=== PATIENT | male | born 1980 | race African-American/Black ===

== ENCOUNTER 2019-12-27 02:33 | Observation (INO) ==
[2019-12-27] MEDS ORDERED: LIDOCAINE 1%/EPI INJ 20 ML VIAL ONE (02:43)
[2019-12-27] MEDS ORDERED: DIPH/TET/ACEL PERT BOOSTER VACCINE 0.5 ML VIAL IM ONE (02:57)
[2019-12-27] MEDS ORDERED: HYDROmorphone 2 MG/1 ML VIAL IV STA (02:57)
[2019-12-27] MEDS ORDERED: ONDANSETRON 4 MG/2 ML VIAL IV STA (02:57)
[2019-12-27 03:04] LABS: Basophils % 0.4 % (0.0-0.8); Eosinophils # 0.2 10*3/uL (0.0-0.87); Eosinophils % 1.7 % (0.00-10.9); Hematocrit 43.9 VOL% (42.0-52.0); Hemoglobin 13.6 GM/DL (14.0-18.0); Immature Granulocytes % 0.4 %; Immature Granulocytes Absolute 0.04 #; Lymphocytes # 3.1 10*3/uL (1.4-4.0); Lymphocytes % 32.4 % (21.2-54.2); Mean Corpuscular Volume 79.5 FL (87-102); Mean Platelet Volume 11.7 FL (9.6-12.0); Monocytes % 8.1 % (1.7-12.7); Platelet Count 230 T/CUMM (130-400); Red Blood Count 5.52 MC/CUMM (3.8-5.5); White Blood Count 9.6 T/CUMM (4-12)
[2019-12-27 03:16] LABS: Alanine Aminotransferase 34 U/L (16-61); Albumin 3.7 G/DL (3.4-5.0); Alkaline Phosphatase 58 U/L (45-117); Amylase 101 U/L (25-115); Aspartate Amino Transferase 25 U/L (0-37); Bilirubin,Total < 0.39 MG/DL (0.2-1.0); Blood Urea Nitrogen 25 MG/DL (7-18); Calcium 8.9 MG/DL (8.5-10.1); Estimated Glom Filtration Rate 79 ML/MIN; Glucose 270 MG/DL (74-106); Total Protein 7.4 G/DL (6.4-8.3)
[2019-12-27 04:05] LABS: Apearance,Urine CLEAR (Clear); Bilirubin,Urine Negative (Negative); Blood, Urine Negative (Negative); Glucose,Urine (UA) 50 mg/dL (Negative); Hyaline Casts,Urine 1 /LPF (0-3); Ketones,Urine Negative (Negative); Mucus,Urine Occasional /LPF (Occasional); Nitrite,Urine Negative (Negative); Protein,Urine 100 MG/DL; RBC,Urine 2 /HPF (0-4); Squamous Epithelial Cell,Urine Occasional /HPF (0-10); Urine Color Yellow (Yellow); Urine Specific Gravity 1.036 (1.001-1.035); Urine Urobilinogen < 2.0 EU/DL (0.2-1.0); WBC,Urine 3 /HPF (0-6)
[2019-12-27] MEDS ORDERED: ALBUTEROL/IPRATROPIUM 3 ML NEB RESP TX PRN (05:00)
[2019-12-27] MEDS ORDERED: HYDROmorphone 2 MG/1 ML VIAL IV PRN (05:00)
[2019-12-27] MEDS ORDERED: ONDANSETRON 4 MG/2 ML VIAL IV PRN (05:00)
[2019-12-27] MEDS ORDERED: DEXTROSE 50% 25 GM/50 ML SYRINGE IV PRN (05:00)
[2019-12-27] MEDS ORDERED: ACETAMINOPHEN 325 MG TABLET PO PRN (05:00)
[2019-12-27] MEDS ORDERED: GLUCAGON 1 MG VIAL IM PRN (05:00)
[2019-12-27] MEDS: INSULIN REGULAR 100 UNIT/ML SUBCUT SCH ×2 (07:39→14:08)
[2019-12-27] MEDS ORDERED: PANTOPRAZOLE 40 MG TABLET PO SCH (09:00)
[2019-12-27] MEDS ORDERED: DOXYCYCLINE HYCLATE 100 MG CAPSULE PO SCH (09:00)
[2019-12-27] MEDS ORDERED: amLODIPine 10 MG TABLET PO SCH (09:00)
[2019-12-27] MEDS ORDERED: CETIRIZINE 10 MG TABLET PO SCH (09:00)
[2019-12-27] MEDS ORDERED: ACYCLOVIR 800 MG TABLET PO SCH (09:00)
[2019-12-27] MEDS ORDERED: sitaGLIPtin 100 MG TABLET PO SCH (09:00)
[2019-12-27] MEDS ORDERED: GABAPENTIN 400 MG CAPSULE PO SCH (09:00)
[2019-12-27] MEDS ORDERED: glipiZIDE 10 MG TABLET PO SCH (09:00)
[2019-12-27] MEDS ORDERED: POTASSIUM CHLORIDE 20 MEQ TABLET PO ONE (09:02)
[2019-12-27] MEDS: FLUTICASONE 50 MCG NASAL SPRAY 16 GM BOTTLE BOTH NARES SCH ×2 (10:58→14:06)
[2019-12-27] MEDS ORDERED: INSULIN GLARGINE 100 UNIT/ML SUBCUT SCH (11:00)
[2019-12-27] MEDS ORDERED: METOCLOPRAMIDE 5 MG TABLET PO SCH (11:30)
[2019-12-27] MEDS ORDERED: ceFAZolin 1,000 MG in SYRINGE 1 EACH IV SCH (11:30)
[2019-12-27 14:46] VITALS: BP 168/84
[2019-12-27] MEDS ORDERED: SIMVASTATIN 10 MG TABLET PO SCH (21:00)
== END 2019-12-27 15:51 | disposition home or self-care (01) ==
LOC: N.ED 02:33 → N.EDINP 02:33 → N.3E 03:55
PROVIDERS: ADMIT Surgery; ATTEND Surgery